=== PATIENT | female | born 2000 | race Caucasian/White ===

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

== ENCOUNTER 2020-09-28 11:36 | Emergency (ER) | payer SELFPAY ==
[~2020-09-28] VITALS: Ht 172.7 cm; Wt 66.0 kg
[2020-09-28] MEDS ORDERED: DEXAMETHASONE 4 MG/ML, 1ML PO ONE (12:00)
[2020-09-28] MEDS ORDERED: DEXAMETHASONE 4 MG/ML, 1ML ONE ×2 (12:45→12:46)
[2020-09-28 13:03] VITALS: BP 124/56
== END 2020-09-28 13:05 | disposition home or self-care (01) ==
LOC: ED 12:40
DX: J02.0 Streptococcal pharyngitis (principal)
CPT/HCPCS: 99283; J1100